=== PATIENT | female | born 1940 | race Caucasian/White ===

== ENCOUNTER 2016-12-28 07:23 | Emergency (ER) | payer MEDICARE ==
[~2016-12-28] VITALS: Ht 162.6 cm; Wt 75.0 kg
[~2016-12-28 07:23] MED LIST: CEPH-368 PO; DOXY100T PO; FLUT16SP NS; GABA100C PO; LEVO100T5 PO; LOVA20TA2 PO; OXYC-302 PO; TRIA1CAP3 PO; ZOLP5TAB6 PO
[2016-12-28] MEDS ORDERED: SODIUM CHLORIDE 0.9% 1,000 ML IV ONE (08:12)
[2016-12-28] MEDS ORDERED: OXYB5TAB PO (08:16)
[2016-12-28] MEDS ORDERED: ONDANSETRON 2MG/ML, 2ML ONE (08:26)
[2016-12-28] MEDS ORDERED: HYDROmorphone 1 MG/ML, 1ML ONE ×2 (08:26→10:18)
[2016-12-28] MEDS ORDERED: ONDANSETRON 2MG/ML, 2ML IVPush ONE (08:30)
[2016-12-28] MEDS ORDERED: SODIUM CHLORIDE FLUSH 10ML SYR IVF ONE (08:30)
[2016-12-28] MEDS: HYDROmorphone 1 MG/ML, 1ML IVPush PRN ×2 (08:37→10:32)
[2016-12-28 09:15] LABS: ASPARTATE AMINO TRANSFERASE 17 U/L (15-37); BLOOD UREA NITROGEN 18 mg/dL (7-18)
[2016-12-28] MEDS ORDERED: LABETALOL 5MG/ML, 20ML ONE (10:25)
[2016-12-28] MEDS ORDERED: OMNIPAQUE 350 MG/ML, 100ML BOTTLE ONE (10:28)
[2016-12-28] MEDS ORDERED: LABETALOL 5MG/ML, 20ML IVPush ONE (10:30)
[2016-12-28] MEDS ORDERED: PINK LADY ENEMA 1,000 ML PR ONE ×2 (11:30→13:00)
[2016-12-28 12:31] VITALS: BP 163/85
[2016-12-28] MEDS ORDERED: ONDANSETRON ODT 4 MG ONE (14:44)
[2016-12-28] MEDS ORDERED: ONDANSETRON ODT 4 MG PO ONE (15:00)
== END 2016-12-28 14:38 | disposition home or self-care (01) ==
LOC: ED 08:43
DX: K59.00 Constipation, unspecified (principal); I10 Essential (primary) hypertension; E87.6 Hypokalemia; E87.1 Hypo-osmolality and hyponatremia
CPT/HCPCS: 36415; 74177; 80053; 81001; 85025; 96361; 96374; 96375; 96376; 99285; J1170; J2405; J7030; Q0162; Q9967

== ENCOUNTER 2016-12-29 13:07 | Inpatient (IN) | payer MEDICARE ==
[~2016-12-29] VITALS: Ht 162.6 cm; Wt 73.4 kg
[~2016-12-29 13:07] MED LIST changes: +OXYB5TAB PO
[2016-12-29] MEDS ORDERED: SODIUM CHLORIDE FLUSH 10ML SYR IVF ONE (14:00)
[2016-12-29] MEDS ORDERED: SODIUM CHLORIDE 0.9% 1,000ML IVBOLUS ONE (14:00)
[2016-12-29] MEDS ORDERED: ONDANSETRON 2MG/ML, 2ML IVPush ONE (14:00)
[2016-12-29] MEDS ORDERED: MORPHINE SULFATE 4 MG/ML, 1ML ONE ×2 (14:03→16:37)
[2016-12-29] MEDS ORDERED: ONDANSETRON 2MG/ML, 2ML ONE (14:04)
[2016-12-29] MEDS: MORPHINE SULFATE 4 MG/ML, 1ML IVPush PRN ×2 (14:23→16:39)
[2016-12-29 14:25] LABS: PATH.CAST-FLAG NOT PRESENT; SPERM-FLAG NOT PRESENT; SRC-FLAG NOT PRESENT; XTAL-FLAG NOT PRESENT; YLC-FLAG NOT PRESENT
[2016-12-29 14:41] LABS: ASPARTATE AMINO TRANSFERASE 21 U/L (15-37); BLOOD UREA NITROGEN 15 mg/dL (7-18); C-REACTIVE PROTEIN, QUANT 0.26 mg/dL (0.02-0.49)
[2016-12-29] MEDS ORDERED: HYDROmorphone 1 MG/ML, 1ML ONE (17:25)
[2016-12-29] MEDS ORDERED: HYDROmorphone 1 MG/ML, 1ML IVPush PRN (17:30)
[2016-12-29] MEDS ORDERED: POTASSIUM CHLORIDE 20 MEQ TAB.ER.PRT ONE (18:58)
[2016-12-29] MEDS ORDERED: HEPARIN 5,000 UNITS/ML, 1ML ONE (18:59)
[2016-12-29] MEDS ORDERED: ONDANSETRON 2MG/ML, 2ML IVPush PRN (19:00)
[2016-12-29] MEDS ORDERED: BISACODYL 10 MG SUPP PR PRN (19:00)
[2016-12-29] MEDS ORDERED: POTASSIUM CHLORIDE 20 MEQ TAB.ER.PRT PO ONE (19:00)
[2016-12-29] MEDS ORDERED: POLYETHYLENE GLYCOL 17 GM PACKET PO PRN (19:00)
[2016-12-29] MEDS: HEPARIN 5,000 UNITS/ML, 1ML SQ SCH (19:04)
[2016-12-29] MEDS ORDERED: hydrALAzine 20 MG/ML, 1ML ONE (19:30)
[2016-12-29] MEDS: hydrALAzine 20 MG/ML, 1ML IV PRN (19:40)
[2016-12-29 20:36] VITALS: BP 147/66
[2016-12-29 21:05] VITALS: BP 162/76
[2016-12-29] MEDS: SODIUM CHLORIDE 0.9% 1,000 ML IV SCH (21:10)
[2016-12-29] MEDS: FLUTICASONE NASAL SPRAY 16GM NAS PRN (21:19)
[2016-12-29] MEDS: ZOLPIDEM 5MG TABLET PO SCH (22:43)
[2016-12-29] MEDS: LOVASTATIN 40 MG TABLET PO SCH (22:44)
[2016-12-29] MEDS: LISINOPRIL 20 MG TABLET PO SCH (22:46)
[2016-12-29] MEDS: GABAPENTIN 100 MG CAPSULE PO SCH (22:46)
[2016-12-29 22:48] VITALS: BP 149/67
[2016-12-30] MEDS: morphine SULFATE 10 MG/ML, 1ML IVPush PRN ×4 (02:12→20:55)
[2016-12-30 02:16] VITALS: BP 152/77
[2016-12-30] MEDS: HEPARIN 5,000 UNITS/ML, 1ML SQ SCH ×3 (06:15→22:03)
[2016-12-30] MEDS: NAPROXEN 500 MG TABLET PO PRN (06:15)
[2016-12-30 06:46] LABS: ASPARTATE AMINO TRANSFERASE 20 U/L (15-37); BLOOD UREA NITROGEN 15 mg/dL (7-18)
[2016-12-30 07:00] VITALS: BP 163/66
[2016-12-30 07:41] LABS: DIFF TOTAL CELLS COUNTED 100 CELL DIFF
[2016-12-30 07:44] LABS: VERIFY COUNTS? YES
[2016-12-30] MEDS: LISINOPRIL 20 MG TABLET PO SCH ×2 (08:28→20:55)
[2016-12-30] MEDS: SODIUM CHLORIDE 0.9% 1,000 ML IV SCH (08:28)
[2016-12-30] MEDS: LEVOTHYROXINE 100 MCG TABLET PO SCH (08:28)
[2016-12-30] MEDS: OXYBUTYNIN CHLORIDE 5 MG TABLET PO SCH (08:28)
[2016-12-30] MEDS: SENNA/DOCUSATE TABLET PO SCH (08:31)
[2016-12-30] MEDS: GABAPENTIN 100 MG CAPSULE PO SCH ×3 (08:31→20:55)
[2016-12-30] MEDS ORDERED: ZOLPIDEM 5MG TABLET PO SCH (09:00)
[2016-12-30] MEDS ORDERED: GADOBUTROL 7.5 MMOL/7.5 ML PFS ONE (12:00)
[2016-12-30] MEDS ORDERED: METHOCARBAMOL 500 MG TABLET PO PRN (12:00)
[2016-12-30 12:29] VITALS: BP 145/81
[2016-12-30 16:22] LABS: OCCBLD OBC PASS
[2016-12-30 19:06] VITALS: BP 146/68
[2016-12-30] MEDS: LOVASTATIN 40 MG TABLET PO SCH (20:54)
[2016-12-30] MEDS: FLUTICASONE NASAL SPRAY 16GM NAS PRN (20:54)
[2016-12-30] MEDS: ZOLPIDEM 5MG TABLET PO SCH (22:02)
[2016-12-31] MEDS: hydrALAzine 20 MG/ML, 1ML IV PRN (01:02)
[2016-12-31 01:06] VITALS: BP 161/77
[2016-12-31 02:24] VITALS: BP 137/73
[2016-12-31] MEDS: NAPROXEN 500 MG TABLET PO PRN (02:42)
[2016-12-31] MEDS: HEPARIN 5,000 UNITS/ML, 1ML SQ SCH ×2 (05:41→14:23)
[2016-12-31 06:09] LABS: BLOOD UREA NITROGEN 14 mg/dL (7-18)
[2016-12-31 09:26] VITALS: BP 147/70
[2016-12-31] MEDS: OXYBUTYNIN CHLORIDE 5 MG TABLET PO SCH (09:34)
[2016-12-31] MEDS: LEVOTHYROXINE 100 MCG TABLET PO SCH (09:34)
[2016-12-31] MEDS: GABAPENTIN 100 MG CAPSULE PO SCH ×3 (09:34→16:19)
[2016-12-31] MEDS: LISINOPRIL 20 MG TABLET PO SCH (09:34)
[2016-12-31] MEDS: SENNA/DOCUSATE TABLET PO SCH (09:36)
[2016-12-31] MEDS: morphine SULFATE 10 MG/ML, 1ML IVPush PRN (11:30)
[2016-12-31] MEDS ORDERED: DEXAMETHASONE 4 MG/ML, 1ML IVPush ONE (13:00)
[2016-12-31] MEDS: SODIUM CHLORIDE 0.9% 1,000 ML IV SCH ×2 (13:18)
[2016-12-31 14:11] VITALS: BP 153/73
[2016-12-31] MEDS ORDERED: METH500T7 PO (16:02)
[2016-12-31] MEDS ORDERED: TRAM50TA2 PO (16:02)
[2016-12-31] MEDS ORDERED: SENN1TAB7 PO (16:02)
[2016-12-31] MEDS ORDERED: OXYC-302 PO (16:02)
[2016-12-31] MEDS ORDERED: GABA100C8 PO (16:02)
== END 2016-12-31 17:16 | disposition home or self-care (01) | DRG 552 ==
LOC: ED 16:51 → 3NE 18:44 → DCLOUNGE 12-31 16:56
PROVIDERS: ADMIT Internal Medicine; ATTEND Internal Medicine
DX: M48.06 Spinal stenosis, lumbar region (principal); E87.2 Acidosis; E87.1 Hypo-osmolality and hyponatremia; M51.36 Other intervertebral disc degeneration, lumbar region; R10.31 Right lower quadrant pain; I16.0 Hypertensive urgency; K21.9 Gastro-esophageal reflux disease without esophagitis; I10 Essential (primary) hypertension; Z66 Do not resuscitate; D72.829 Elevated white blood cell count, unspecified; E03.9 Hypothyroidism, unspecified; E78.5 Hyperlipidemia, unspecified; E87.6 Hypokalemia; M19.90 Unspecified osteoarthritis, unspecified site; M47.816 Spondylosis without myelopathy or radiculopathy, lumbar region; M54.41 Lumbago with sciatica, right side; Z82.0 Family history of epilepsy and other diseases of the nervous system
CPT/HCPCS: 36415; 72110; 72158; 76700; 80048; 80053; 81001; 82272; 83605; 83690; 83735; 85025; 85651; 86140; 93005; 96374; 96375; 96376; A9585; J1100; J1644; J2405; J0360; J2270; J7030

== ENCOUNTER → 2017-06-10 | Outpatient (CLI) | payer MEDICARE ==
[~2017-06-10] MED LIST changes: +GABA-826 PO; +METH500T7 PO; +SENN1TAB7 PO; +TRAM50TA2 PO
== END | disposition home or self-care (01) ==
LOC: RAD 12:55
PROVIDERS: ATTEND Family Medicine
DX: R10.2 Pelvic and perineal pain (principal); Z90.710 Acquired absence of both cervix and uterus
CPT/HCPCS: 76830